=== PATIENT | female | born 1965 | race American Indian/Alaskan Native ===

== ENCOUNTER 2019-10-19 12:24 | Outpatient (CLI) | payer OTHER ==
--- NOTE | 2019-10-19 19:03 | Ultrasound Report ---
EXAMINATION: Right Limited Breast Ultrasound, 10/19/2019 INDICATION: Abnormal screening mammogram COMPARISON: Right diagnostic mammogram 10/02/2019, screening mammograms 09/25/2019 and multiple prior s FINDINGS: Targeted ultrasound evaluation was performed of the area of interest. In the 3:00 position, 2 cm from the nipple, at the site of the radiographic abnormality, a small ovoid benign-appearing hy poechoic solid nodule is seen measuring 6 mm in length and 3 mm in thickness. No vascularity is seen and no shadowing is noted. Borders are smoothly defined. Radiographically, this has a benign appearance and possibly was present on some prior studies. IMPRESSION: Probably benign solid nodule Follow up recommendation: Right breast ultrasound and mammogram follow-up in 6 months BIRADS: 3: Probably benign Signer Name: Job Ortega MD Signed: 10/19/2019 6:58 PM Workstation Name: [email or web address]
== END 2019-10-19 12:25 | disposition home or self-care (01) ==
LOC: US 12:24
PROVIDERS: ATTEND Surgery
DX: R92.8 Other abnormal and inconclusive findings on diagnostic imaging of breast (principal)

== ENCOUNTER 2020-10-07 13:10 | Outpatient (CLI) | payer OTHER ==
--- NOTE | 2020-10-08 07:45 | Mammography Report ---
DIGITAL SCREENING MAMMOGRAM WITH TOMOSYNTHESIS WITH CAD, 10/07/2020 CLINICAL INFORMATION / INDICATION: Routine Screening Mammography. TECHNIQUE: Digital bilateral 2D and 3D mammography with tomosynthesis was obtained in the craniocaud al and mediolateral oblique projections. Computer-Aided Detection (CAD) analysis was used for interp retation of this study. COMPARISON: 09/25/2019 FINDINGS: Breast Density: There are scattered areas of fibroglandular density. No dominant mass, suspicious calcifications, or architectural distortion in either breast. Benign-appearing right density is stable. IMPRESSION: No mammographic evidence of malignancy. Follow up recommendation: Routine yearly BI-RADS Category 2: Benign. A "normal" or negative report should not discourage follow up or biopsy of a clinically significant f inding. A written summary of these findings will be mailed to the patient. The patient will be entered into a mammography reporting system which will generate a reminder letter for the patient's next appointmen t at the appropriate interval. The [employer] recommends yearly mammograms starting at age 40 and continuing as l shakir as a woman is in good health. Breast MRI is recommended for women with an approximate 20-25% or greater lifetime risk of breast cancer, including women with a strong family history of breast or ova betsy cancer or who have been treated for Hodgkin's disease. Signer Name: Job Ortega MD Signed: 10/08/2020 7:41 AM Workstation Name: [id number]
== END 2020-10-07 13:11 | disposition home or self-care (01) ==
LOC: SPVWC 13:10
PROVIDERS: ATTEND Surgery
DX: Z12.31 Encounter for screening mammogram for malignant neoplasm of breast (principal); N64.89 Other specified disorders of breast
CPT/HCPCS: 77063; 77067

== ENCOUNTER 2020-10-28 13:02 | Outpatient (CLI) | payer OTHER ==
--- NOTE | 2020-10-28 14:36 | Ultrasound Report ---
ULTRASOUND BREAST RIGHT COMPLETE, 10/28/2020 CLINICAL INFORMATION / INDICATION: ABNORMAL/INCONCLUSIVE FINDINGS ON BREAST IMAGING. TECHNIQUE: Complete sonographic evaluation of all 4 quadrants and retroareolar region was performed. COMPARISON: Bilateral mammography 10/07/20 and right breast ultrasound 10/19/19. FINDINGS: There is a 5.5 mm ovoid hypoechoic solid nodule at the 3:00 position 2 cm from the nipple which measu red 6.2 mm on the prior ultrasound. Posterior shadowing is present, similar to the prior exam. No int ernal vascularity is seen on Doppler exam. There are a few scattered microcysts. There are a couple o f right axillary lymph nodes. The largest lymph node measures 1.5 cm short axis and demonstrates liz ical thickening measuring up to 7 mm. Stable axillary lymph nodes are noted mammographically. IMPRESSION: 5.5 mm benign-appearing nodule in the right breast is slightly smaller. Mildly enlarged r ight axillary lymph node is likely reactive. Follow up recommendation: Ultrasound BI-RADS Category 3: Probably Benign. Followup in 6 months. A normal or "negative" report should not preclude biopsy or follow-up of a clinically suspicious find ing. Signer Name: Von Lou MD Signed: 10/28/2020 2:31 PM Workstation Name: [email or web address]
== END 2020-10-28 13:03 | disposition home or self-care (01) ==
LOC: SPVWC 13:02
PROVIDERS: ATTEND Surgery
DX: N63.14 Unspecified lump in the right breast, lower inner quadrant (principal); R92.2 Inconclusive mammogram

== ENCOUNTER 2021-07-08 10:55 | Outpatient (CLI) | payer OTHER ==
--- NOTE | 2021-07-08 14:58 | Ultrasound Report ---
ULTRASOUND BREAST RIGHT LIMITED, 07/08/2021 CLINICAL INFORMATION / INDICATION: Six-month follow-up right ultrasound exam. TECHNIQUE: Targeted ultrasound evaluation was performed of the area of interest. COMPARISON: Prior ultrasound 10/28/2020, 10/19/2019 FINDINGS: As noted on the prior study there continues to be a benign appearing oval solid mass in the 3:00 loca tion, 2 cm from nipple measuring 5-6 6 mm in diameter with associated posterior shadowing. This is un changed in appearance since prior ultrasound of 2012 2018. There are a few scattered subcentimeter cy sts noted as well. Additionally, previously enlarged right axillary lymph node is again noted. Although the lymph node r emains somewhat prominent for size, the degree of cortical thickening has decreased. Focal cortical t hickness is now 4-5 mm, previously measuring 7 mm. IMPRESSION: Stable appearance of benign-appearing mass in the right breast at 3:00. No further evalua tion is necessary as this has been stable for nearly 2 years. Previously noted prominent right axillary lymph node has decreased in size slightly since the prior e xam. Follow up recommendation: Routine yearly A normal or "negative" report should not preclude biopsy or follow-up of a clinically suspicious find ing. Signer Name: Nanda Galeana MD Signed: 07/08/2021 2:54 PM Workstation Name: [email or web address]
== END 2021-07-08 10:56 | disposition home or self-care (01) ==
LOC: SPVWC 10:55
PROVIDERS: ATTEND Surgery
DX: N60.01 Solitary cyst of right breast (principal); N60.11 Diffuse cystic mastopathy of right breast; R59.0 Localized enlarged lymph nodes

== ENCOUNTER 2021-11-17 12:11 | Outpatient (CLI) | payer OTHER ==
--- NOTE | 2021-11-18 12:44 | Mammography Report ---
DIGITAL SCREENING MAMMOGRAM WITH TOMOSYNTHESIS WITH CAD, 11/17/2021 CLINICAL INFORMATION / INDICATION: Screening TECHNIQUE: Digital bilateral 2D and 3D mammography with tomosynthesis was obtained in the craniocaud al and mediolateral oblique projections. Computer-Aided Detection (CAD) analysis was used for interp retation of this study. COMPARISON: 10/07/2020 FINDINGS: Breast Density: There are scattered areas of fibroglandular density. No dominant mass, suspicious calcifications, or architectural distortion in either breast. Right density is stable. IMPRESSION: No mammographic evidence of malignancy. Follow up recommendation: Routine yearly BI-RADS Category 2: BENIGN. A "normal" or negative report should not discourage follow up or biopsy of a clinically significant f inding. A written summary of these findings will be mailed to the patient. The patient will be entered into a mammography reporting system which will generate a reminder letter for the patient's next appointmen t at the appropriate interval. The [employer] recommends yearly mammograms starting at age 40 and continuing as l shakir as a woman is in good health. Breast MRI is recommended for women with an approximate 20-25% or greater lifetime risk of breast cancer, including women with a strong family history of breast or ova betsy cancer or who have been treated for Hodgkin's disease. Signer Name: Job Ortega MD Signed: 11/18/2021 12:39 PM Workstation Name: [email or web address]
== END 2021-11-17 12:12 | disposition home or self-care (01) ==
LOC: SPVWC 12:11
PROVIDERS: ATTEND Surgery
DX: Z12.31 Encounter for screening mammogram for malignant neoplasm of breast (principal)
CPT/HCPCS: 77063; 77067